=== PATIENT | female | born 1985 | race Caucasian/White ===

== ENCOUNTER 2018-07-03 11:33 | Emergency (ER) | payer BC, OTHER ==
[2018-07-03] MEDS ORDERED: Metoclopramide HCl 10 MG/2 ML VIAL ONE (12:41)
[2018-07-03] MEDS ORDERED: Ketorolac Tromethamine 30 MG/ML VIAL ONE (12:41)
[2018-07-03] MEDS ORDERED: Metoclopramide HCl 10 MG/2 ML VIAL IVP SCH (12:45)
[2018-07-03] MEDS ORDERED: Ketorolac Tromethamine 30 MG/ML VIAL IVP SCH (12:45)
[2018-07-03] MEDS ORDERED: Sodium Chloride 0.9% 1,000 ML IV SCH (12:45)
[2018-07-03] MEDS ORDERED: diphenhydrAMINE 25 MG CAP ONE (13:03)
[2018-07-03 13:13] LABS: Bilirubin Negative (Negative); Blood, Urine Negative (Negative); Clarity CLEAR (Clear); Glucose, Urine (Dipstick) Negative (Negative); Leukocyte Trace (Negative); Nitrite Negative (Negative); Protein, Urine (Dipstick) Negative (Neg-Trace); Specific Gravity, Urine 1.009 (1.002-1.036); Urobilinogen 0.2 mg/dL (0.2-1.0)
[2018-07-03 13:15] LABS: Pregnancy Test - Urine (BHCG) Negative (Negative); Pregu Control Background? CLEAR/WHITE (CLR/WHITE); Pregu Control Bar Appear? YES (CONTROL BAR); Specific Gravity 1.009 (1.002-1.036)
[2018-07-03 13:17] LABS: Bacteria/HPF Rare-Few HPF (None Seen); Hyaline Casts/LPF 0-3 HYALINE CAST LPF (0-3 Hyaline); Pathc Cast-AUWi Flag 0.14 (0-2.49); RBC/HPF 0-3 HPF (0-3); Squamous Epithelial 0-3 HPF (0-3); WBC/HPF 0-3 HPF (0-3)
--- NOTE | 2018-07-03 13:35 | CT ---
CT HEAD NONCONTRAST DATE: 07/03/18 HISTORY: Headache. Dizziness. COMPARISON: 12/19/10. FINDINGS: There is no evidence of acute intracranial hemorrhage or infarct. The ventricles appear normal in siz e, shape, and position. There is no mass effect or shift of midline structures. IMPRESSION: No acute intracranial abnormalities are demonstrated. POS: [facility]
== END 2018-07-03 15:04 | disposition home or self-care (01) ==
LOC: ERS 11:33
DX: R51 Headache (principal)
CPT/HCPCS: 70450; 81003; 81015; 81025; 96365; 96366; 96375; J1885; J2765

== ENCOUNTER 2021-06-06 08:30 | Emergency (ER) | payer BC | END 2021-06-06 10:19 | disposition left against medical advice (07) | LOC: ERS 08:30 | DX: Z53.21 Procedure and treatment not carried out due to patient leaving prior to being seen by health care provider (principal) ==

== ENCOUNTER 2022-07-04 07:59 | Emergency (ER) | payer BC ==
[2022-07-04 08:36] LABS: #Basophils 0.1 thou/uL (0.0-0.2); #Eosinphils 0.1 thou/uL (0.0-0.7); #Lymphocytes 2.2 thou/uL (1.20-3.40); #Monocytes 0.4 thou/uL (0.11-0.59); #Neutrophils 3.5 thou/uL (1.40-6.50); %Basophils 1.3 % (0.0-1.0); %Eosinophils 1.1 % (0.0-10.0); %Monocytes 5.8 % (0.0-10.0); %Neutrophils 56.8 % (42.0-75.0); Mean Corpuscular HGB CONC 33.4 g/dL (32.0-36.0); Mean Corpuscular Hemoglobin 30.9 pg (27.0-31.0); Mean Corpuscular Volume 92.5 fl (78.0-98.0); Mean Platelet Volume 7.5 fL (7.4-10.4); Platelet Count 249 thou/uL (130-400); Red Blood Cell (RBC) Count 4.21 mill/uL (4.20-5.40); White Blood Cell (WBC) Count 6.2 thou/uL (4.8-10.8)
[2022-07-04] MEDS ORDERED: Acetaminophen 325 MG TAB ONE (08:44)
[2022-07-04 08:47] LABS: Bacteria/HPF None Seen HPF (None Seen); Bilirubin Negative (Negative); Blood, Urine 1+ (Negative); Clarity Clear (Clear); Glucose, Urine (Dipstick) Normal (Negative); Ketone, Urine Negative (Negative); Leukocyte Negative Leu/uL (Negative); Nitrite Negative (Negative); Protein, Urine (Dipstick) Negative (Neg-Trace); RBC/HPF 0-3 HPF (0-3); Specific Gravity, Urine 1.025 (1.002-1.036); Squamous Epithelial 0-3 HPF (0-3); Urobilinogen Normal mg/dL (Less than 2); WBC/HPF 0-3 HPF (0-3)
[2022-07-04 08:53] LABS: Pregnancy Test - Urine (BHCG) POSITIVE (Negative); Pregu Control Background? CLEAR/WHITE (CLR/WHITE); Pregu Control Bar Appear? YES (CONTROL BAR); Specific Gravity 1.025 (1.002-1.036)
[2022-07-04 08:59] LABS: ALT (SGPT) 30 U/L (8-55); AST (SGOT) 18 U/L (5-34); Albumin 4.1 g/dL (3.5-5.0); Alkaline Phosphatase 68 U/L (40-110); Anion Gap 10 mmol/L (10-20); BUN (Urea Nitrogen) 11 mg/dL (7.0-18.7); Bilirubin, Total 0.4 mg/dL (0.2-1.2); Calc. Creatinine Clearance 0 mL/min (70-130); Calcium 8.9 mg/dL (7.8-10.44); Carbon Dioxide 26 mmol/L (22-29); Chloride 105 mmol/L (98-107); Estimated GFR 102; Globulin 2.8 g/dL (2.4-3.5); Glucose 81 mg/dL (70-105); Potassium 3.8 mmol/L (3.5-5.1); Protein, Total 6.9 g/dL (6.0-8.3); Sodium 137 mmol/L (136-145)
== END 2022-07-04 10:41 | disposition home or self-care (01) ==
LOC: ERS 07:59
DX: O03.9 Complete or unspecified spontaneous abortion without complication (principal)
CPT/HCPCS: 36415; 76856; 80053; 81003; 81015; 81025; 85025; 86900; 86901; 94760